=== PATIENT | female | born 1990 ===

== ENCOUNTER 2020-10-19 12:04 | Day surgery (SDC) | payer OTHER ==
--- NOTE | 2020-10-16 12:36 | History and Physical Report ---
History of Present Illness Date of examination: 10/19/20 History of present illness: 30 yo desires sterilization. PT currently has a Paragard IUD. She notes during her pap last year that the IUD string was visible. No pelvic pain or menstrual issues. Past History Past Medical History: asthma, other (depression, gallstones) Past Surgical History: section (x 4, abdominoplasty) Social history: no significant social history - Obstetrical History : 4 Hx # Term Pregnancies: 3 Number of Pregnancies: 4 Number of Living Children: 4 Medications and Allergies Allergies Allergy/AdvReac Type Severity Reaction Status Date / Time iodine Allergy Itching Verified 10/12/20 17:02 shellfish derived Allergy Itching Verified 10/12/20 17:02 tomato Allergy Itching Verified 10/12/20 17:02 Home Medications Medication Instructions Recorded Confirmed Last Taken Type No Known Home Medications [No 10/12/20 10/12/20 Unknown History Reported Home Medications] Review of Systems All systems: negative (except HPI) - Physical Exam Cardiovascular: Regular rate, No murmurs Lungs: Positive: Clear to auscultation, Normal air movement Abdomen: Positive: normal appearance, soft. Negative: tenderness Vulva: both: normal Vagina: Positive: normal moisture. Negative: discharge Cervix: Positive: other (NO IUD string visible.). Negative: lesion, discharge Uterus: Positive: normal size, normal contour Adnexa: both: normal Results All other labs normal. Assessment and Plan - Patient Problems (1) Sterilization Current Visit: No Status: Acute Plan to address problem: Pt is for Lap BTL on 10/19/20. PT fully consented. She understands and accepts the approximately 07/999 risk of failure. PT will also need IUD removal. Since strings are not visible, pt consented about the possibility of needing a hysteroscopy to remove it. Patient fully consented for the surgery. Risks, benefits, and alternatives were all discussed with the patient including risk of bleeding, infection, and potential for injury. Patient understands and accepts these risks. Patient agrees to proceed with surgery. All questions were answered. H&P is up-to-date.
[~2020-10-19 12:04] MED LIST: ACETAMINOPHEN 500 MG TAB PO SCH; CELECOXIB 200 MG CAP PO NR; GABAPENTIN 300 MG CAP PO NR; LACTATED RINGERS 1,000 ML IV SCH; MIDAZOLAM 2 MG/2 ML INJ IV NR; SCOPOLAMINE TRANSDERMAL PATCH 72 HR TD NR
[2020-10-19] MEDS ORDERED: oxyCODONE /ACETAMINOPHEN 5-325MG TAB PO PRN (13:11)
[2020-10-19] MEDS ORDERED: ONDANSETRON 4 MG/2 ML INJ IV PRN (13:11)
--- NOTE | 2020-10-19 13:11 | Anesthesia Day of Surgery ---
Anesthesia Day of Surgery - Day of Surgery Patient Examined: Yes Patient H&P Reviewed: Yes Patient is NPO: Yes
--- NOTE | 2020-10-19 13:11 | Anesthesia Consultation ---
Anesthesia Consult and Med Hx Date of service: 10/19/20 - Airway Anesthetic Teeth Evaluation: Good ROM Head & Neck: Adequate Mental/Hyoid Distance: Adequate Mallampati Class: Class II Intubation Access Assessment: Probably Good - Pre-Operative Health Status ASA Pre-Surgery Classification: ASA1 Proposed Anesthetic Plan: General - Pulmonary Hx Smoking: No Hx Respiratory Symptoms: No - Cardiovascular System Hx Hypertension: No - Central Nervous System CVA: No - Endocrine Hx Renal Disease: No Hx Liver Disease: No Hx Insulin Dependent Diabetes: No Hx Non-Insulin Dependent Diabetes: No Hx Thyroid Disease: No - Additional Comments Anesthesia Medical History Comments: No hx anesthetic complications.
[2020-10-19] MEDS ORDERED: dexAMETHasone 20 MG/5 ML VIAL ONE (14:30)
[2020-10-19] MEDS ORDERED: ONDANSETRON 4 MG/2 ML INJ ONE (14:30)
[2020-10-19] MEDS ORDERED: NEOSTIGMINE 10MG/10 ML INJ MDV ONE (14:30)
[2020-10-19] MEDS ORDERED: KETOROLAC 30 MG/1 ML INJ ONE (14:30)
[2020-10-19] MEDS ORDERED: GLYCOPYRROLATE 0.4 MG/2 ML INJ ONE (14:30)
[2020-10-19] MEDS ORDERED: BUPIVACAINE/PF (0.25%) 2.5 MG/ML 30 ML VIAL INFILTRATI ONE (14:36)
[2020-10-19] MEDS ORDERED: propofoL 200 MG/20 ML VIAL IV ONE (14:50)
[2020-10-19] MEDS ORDERED: ROCURONIUM 50 MG/5 ML INJ IV ONE (14:50)
[2020-10-19] MEDS ORDERED: LIDOCAINE MPF (2%) 20 MG/1 ML VIAL 5 ML ONE (14:50)
[2020-10-19] MEDS ORDERED: MIDAZOLAM 2 MG/2 ML INJ ONE (14:50)
[2020-10-19] MEDS ORDERED: SODIUM CHLORIDE 0.9% IRR 1,500 ML BOTTLE IR ONE (15:24)
[2020-10-19] MEDS ORDERED: BUPIVACAINE/PF (0.5%) 5 MG/1 ML 30 ML VIAL INFILTRATI ONE (15:24)
[2020-10-19] MEDS ORDERED: fentaNYL 100 MCG/2 ML INJ ONE (15:44)
--- NOTE | 2020-10-19 15:45 | Post Operative Note ---
Date of procedure: 10/19/20 Pre-op diagnosis: Sterilization Post-op diagnosis: same Findings: Normal uterus, tubes, ovaries except for significant scarring of the anterior side of the uterus to the anterior peritoneal wall due to her 4 prior C- sections. Mobility of the uterus was very poor. The scarring was all the way up to the level of the fundus. No other anomalies noted in the abdominal pelvic survey. The ParaGard IUD was able to be removed intact without difficulty. Procedure: Indication: 30-year-old -1-0-4 desires sterilization. Patient has a ParaGard IUD in place. As result, patient here for her laparoscopic bilateral tubal ligation with Filshie clips and removal of IUD. Procedure: Laparoscopic bilateral tubal ligation and removal of IUD. Patient taken the operating room and prepped and draped in usual fashion. Attention was first turned vaginally where single-tooth tenaculum was applied to the anterior lip of the cervix. Then using a long Irma clamp, the ParaGard IUD string was able to be fished out and the ParaGard IUD was able to be removed in its entirety without any difficulty. An acorn uterine manipulator was then placed. Attention was now turned abdominally where a 5 mm incision was made in the the left upper quadrant about 2 fingerbreadths inferior to the costal margin in the midclavicular line. This is done here due to her history of 4 C-sections. Veres needle then placed in the abdominal cavity. The abdomen was appropriately insufflated with CO2 gas. Veres needle removed and the 5 mm trocar was placed in abdominal cavity. Placement confirmed with the camera. Attention was turned umbilicus where an 8 mm incision was made and the 8 mm trocar was placed under direct visualization. Trocar placed successfully and without difficulty. Attention was first turned to assess in the abdomen and pelvis. Findings noted above. Attention turned to the tubal ligation where a Filshie clip was applied to each tube. Each clip encompassed the full width of the tube on each side and good hemostasis was noted afterwards on both sides. At this point the abdomen was fully desufflated. Trochars were removed. Trocar sites were closed with 4- 0 Vicryl in a subcuticular fashion followed by Marcaine. The acorn uterine manipulator and single-tooth tenaculum were removed. Procedure concluded at this point. Patient tolerated the procedure well. All instrument lap counts were correct. Patient taken to the recovery room in stable condition. Anesthesia: MIRI Surgeon: CHARLEEN LY Estimated blood loss: minimal Pathology: none Condition: stable Disposition: PACU
--- NOTE | 2020-10-19 15:47 | Short Stay Summary ---
Short Stay Documentation Date of service: 10/19/20 Narrative H&P: Patient here on 10/19/2020 for her scheduled laparoscopic bilateral tubal ligation with Filshie clips and removal of ParaGard IUD. Surgery was successful and uncomplicated. Please see H&P and operative report for details. Patient advised to follow-up in the office 2 weeks postop. - History H&P: dictated Social history: no significant social history - Allergies and Medications Current Medications: Allergies iodine Allergy (Verified 10/12/20 17:02) Itching shellfish derived Allergy (Verified 10/12/20 17:02) Itching tomato Allergy (Verified 10/12/20 17:02) Itching Home Medications Medication Instructions Recorded Confirmed Last Taken Type No Known Home Medications [No 10/12/20 10/12/20 Unknown History Reported Home Medications] Active Medications Acetaminophen (Acetaminophen 500 Mg Tab) 1,000 mg PO PREOP BELKIS Last Admin: 10/19/20 13:20 Dose: 1,000 mg Documented by: Celecoxib (Celecoxib 200 Mg Cap) 200 mg PO PREOP NR Stop: 10/19/20 23:59 Last Admin: 10/19/20 13:20 Dose: 200 mg Documented by: Gabapentin (Gabapentin 300 Mg Cap) 300 mg PO PREOP NR Stop: 10/19/20 23:59 Last Admin: 10/19/20 13:20 Dose: 300 mg Documented by: Hydromorphone HCl (Hydromorphone 1 Mg/1 Ml Inj) 0.5 mg IV Q10MIN PRN PRN Reason: Pain , Severe (7-10) Lactated Ringer's (Lactated Ringers) 1,000 mls @ 100 mls/hr IV DIRECT BELKIS Stop: 10/19/20 23:59 Last Admin: 10/19/20 13:30 Dose: 100 mls/hr Documented by: Midazolam HCl (Midazolam 2 Mg/2 Ml Inj) 2 mg IV PREOP NR Stop: 10/19/20 23:59 Last Admin: 10/19/20 13:32 Dose: 2 mg Documented by: Ondansetron HCl (Ondansetron 4 Mg/2 Ml Inj) 4 mg IV ONCE PRN PRN Reason: Nausea And Vomiting Stop: 10/19/20 23:59 Oxycodone/Acetaminophen (Oxycodone /Acetaminophen 5-325mg Tab) 1 tab PO ONCE PRN PRN Reason: Pain, Moderate (4-6) Stop: 10/19/20 23:59 Scopolamine (Scopolamine Transdermal Patch 72 Hr) 1 each TD PREOP NR Stop: 10/19/20 23:59 Last Admin: 10/19/20 13:20 Dose: 1 each Documented by: - Disposition Condition at discharge: Stable Disposition: DC-01 TO HOME OR SELFCARE - Discharge Diagnoses (1) Sterilization Status: Acute Short Stay Discharge Plan Follow up with: PRIMARY CARE, [Primary Care Provider] - 7 Days
[2020-10-19] MEDS: HYDROmorphone 1 MG/1 ML INJ IV PRN ×4 (15:58→16:30)
[2020-10-19 17:14] VITALS: BP 143/79
--- NOTE | 2020-10-19 17:18 | Post Anesthesia Evaluation ---
- Post Anesthesia Evaluation Patient Participated: Yes Airway Patent: Yes Stable Respiratory Function: Yes Nausea/Vomiting: No Temp > 96.8F: Yes Pain Manageable: Yes Adequeate Hydration: Yes Anesthesia Complications: No
== END 2020-10-19 17:20 | disposition home or self-care (01) ==
LOC: OR 12:04
PROVIDERS: ATTEND Obstetrics & Gynecology
DX: Z30.2 Encounter for sterilization (principal); Z30.432 Encounter for removal of intrauterine contraceptive device; G43.909 Migraine, unspecified, not intractable, without status migrainosus; Z90.13 Acquired absence of bilateral breasts and nipples; Z88.8 Allergy status to other drugs, medicaments and biological substances; Z91.041 Radiographic dye allergy status; Z79.899 Other long term (current) drug therapy; Z98.891 History of uterine scar from previous surgery; Z98.890 Other specified postprocedural states
CPT/HCPCS: 58301; 58671; 81025; J1100; J1170; J1885; J2250; J2405; J2704; J2710; J3010; J7120